=== PATIENT | male | born 1930 | race Caucasian/White ===

== ENCOUNTER 2018-08-30 16:31 | Emergency (ER) | payer MEDICARE, MEDICAID ==
[~2018-08-30] VITALS: Ht 165.1 cm; Wt 83.9 kg
[2018-08-30 16:45] VITALS: BP 150/92
[2018-08-30 17:06] LABS: HEMATOCRIT 47 % (40-54); HEMOGLOBIN 15.5 G/DL (13.3-17.7); MEAN CORPUSCULAR HEMOGLOBIN 31 PG (25-34); MEAN CORPUSCULAR VOLUME 93 FL (80-99); WHITE BLOOD COUNT 7.3 10^3/uL (4.3-11.0)
[2018-08-30 17:07] LABS: BASOPHILS # (AUTO) 0.1 10^3/uL (0.0-0.1); BASOPHILS % (AUTO) 1 % (0-10); EOSINOPHILS # (AUTO) 0.3 10^3/uL (0.0-0.3); EOSINOPHILS % (AUTO) 4 % (0-10); LYMPHOCYTES # (AUTO) 1.9 X 10^3 (1.0-4.0); LYMPHOCYTES % (AUTO) 26 % (12-44); MEAN CORPUSCULAR HGB CONC 33 G/DL (32-36); MEAN PLATELET VOLUME 10.2 FL (7.4-10.4); MONOCYTES # (AUTO) 0.7 X 10^3 (0.0-1.0); MONOCYTES % (AUTO) 9 % (0-12); NEUTROPHILS # (AUTO) 4.3 X 10^3 (1.8-7.8); NEUTROPHILS % (AUTO) 59 % (42-75); PLATELET COUNT 116 10^3/uL (130-400); RED CELL DISTRIBUTION WIDTH 16.7 % (10.0-14.5)
--- NOTE | 2018-08-30 17:14 | ED Neurological Problem ---
General Chief Complaint: Neuro-Stroke Like Symptoms Stated Complaint: POSS STROKE Source: patient, family History of Present Illness Date Seen by Provider: Aug 30, 2018 Time Seen by Provider: 16:55 Initial Comments 87-year-old male presents with left-sided weakness. Patient complains that his left arm feels "heavy" in his left leg was dragging. Family reports that symptoms started around 8:00 this morning. When ask him about some slight left- sided facial droop they report that is new. Patient does not seem to have any dysarthria or swallowing problems. Patient denies any chest pain, vision changes, nausea vomiting or other systemic complaints at this time Allergies and Home Medications Patient Home Medication List Home Medication List Reviewed: Yes Review of Systems Review of Systems Constitutional: No fever Eyes: No Symptoms Reported; Denies Blurred Vision Ears, Nose, Mouth, Throat: no symptoms reported Respiratory: No cough, No short of breath Cardiovascular: No chest pain, No edema Gastrointestinal: no symptoms reported; No abdominal pain, No nausea, No vomiting Genitourinary: no symptoms reported Musculoskeletal: see HPI Skin: no symptoms reported Psychiatric/Neurological: See HPI Past Dmktyfj-Tnolqm-Tehecs Hx Past Med/Social Hx: Reviewed Nursing Past Med/Soc Hx Patient Social History Recent Foreign Travel: No Contact w/Someone Who Travel: No Physical Exam Vital Signs Vital Signs - First Documented 08/30/18 16:45 Temp 96.7 Pulse 70 Resp 18 B/P (MAP) 150/92 Pulse Ox 98 O2 Delivery Room Air Capillary Refill : Height, Weight, BMI Height: '" Weight: lbs. oz. kg; BMI Method: General Appearance: WD/WN, no apparent distress HEENT: PERRL/EOMI Neck: full range of motion, supple Respiratory: chest non-tender, lungs clear, normal breath sounds Cardiovascular: normal peripheral pulses, regular rate, rhythm Gastrointestinal: non tender, soft Extremities: normal range of motion Neurologic/Psychiatric: oriented x 3, facial droop, motor weakness Crainal Nerves: normal hearing, normal speech, PERRL, facial droop Motor/Sensory: weak motor strength LUE, weak motor strength LLE Skin: normal color, warm/dry Stroke Onset of Symptoms Date of Onset of Symptoms: Aug 30, 2018 Time of Symptom Onset: 08:00 NIH Stroke Scale Assessment Select: Initial Level of Consciousness: 0=Alert (0), Level of Consciousness- Questions: 0=Answers both month/age (0), LOC Commands: 0=Performs both tasks (0), Gaze: Normal (0), Visual Gates: 0=No visual loss (0), Facial Movement (Facial Paresis): 1=Minor paralysis (1), Motor Function-Arms Right: 0=No drift (0), Motor Function-Arms Left: 1=Drift (1), Motor Function-Legs Right: 0=No drift (0), Motor Function-Legs Left: 1=Drift (1), Limb Ataxia: 0=Absent (0), Sensory: 0=Normal:no loss (0), Best Language: 0=No aphasia (0), Dysarthria: 0=Normal (0), Extinction & Inattention: 0=No abnormality (0), Total: 3 IV - TPa Received IV - TPa Procedure Performed?: No Progress/Results/Core Measures Results/Orders Lab Results Laboratory Tests Test 08/30/18 16:50 08/30/18 17:30 Range/Units White Blood Count 7.3 4.3-11.0 10^3/uL Red Blood Count 5.02 4.35-5.85 10^6/uL Hemoglobin 15.5 13.3-17.7 G/DL Hematocrit 47 40-54 % Mean Corpuscular Volume 93 80-99 FL Mean Corpuscular Hemoglobin 31 25-34 PG Mean Corpuscular Hemoglobin Concent 33 32-36 G/DL Red Cell Distribution Width 16.7 H 10.0-14.5 % Platelet Count 116 L 130-400 10^3/uL Mean Platelet Volume 10.2 7.4-10.4 FL Neutrophils (%) (Auto) 59 42-75 % Lymphocytes (%) (Auto) 26 12-44 % Monocytes (%) (Auto) 9 0-12 % Eosinophils (%) (Auto) 4 0-10 % Basophils (%) (Auto) 1 0-10 % Neutrophils # (Auto) 4.3 1.8-7.8 X 10^3 Lymphocytes # (Auto) 1.9 1.0-4.0 X 10^3 Monocytes # (Auto) 0.7 0.0-1.0 X 10^3 Eosinophils # (Auto) 0.3 0.0-0.3 10^3/uL Basophils # (Auto) 0.1 0.0-0.1 10^3/uL Prothrombin Time 13.8 12.2-14.7 SEC INR Comment 1.0 0.8-1.4 Sodium Level 138 135-145 MMOL/L Potassium Level 4.0 3.6-5.0 MMOL/L Chloride Level 99 98-107 MMOL/L Carbon Dioxide Level 23 21-32 MMOL/L Anion Gap 16 H 5-14 MMOL/L Blood Urea Nitrogen 19 H 7-18 MG/DL Creatinine 1.30 0.60-1.30 MG/DL Estimat Glomerular Filtration Rate 52 BUN/Creatinine Ratio 15 Glucose Level 112 H 70-105 MG/DL Calcium Level 8.8 8.5-10.1 MG/DL Corrected Calcium 8.8 8.5-10.1 MG/DL Magnesium Level 2.2 1.8-2.4 MG/DL Total Bilirubin 0.5 0.1-1.0 MG/DL Aspartate Amino Transf (AST/SGOT) 28 5-34 U/L Alanine Aminotransferase (ALT/SGPT) 12 0-55 U/L Alkaline Phosphatase 340 H 40-136 U/L Total Protein 7.1 6.4-8.2 GM/DL Albumin 4.0 3.2-4.5 GM/DL My Orders Orders - MILES,EDDY L DO Ct Head Wo (08/30/18 16:54) Cbc With Automated Diff (08/30/18 16:54) Comprehensive Metabolic Panel (08/30/18 16:54) Magnesium (08/30/18 16:54) Protime With Inr (08/30/18 16:54) Ua Culture If Indicated (08/30/18 16:54) Ed Iv/Invasive Line Start (08/30/18 16:54) Ekg Tracing (08/30/18 16:54) Monitor-Rhythm Ecg Trace Only (08/30/18 16:54) Troponin I (08/30/18 17:22) Vital Signs/I&O 08/30/18 08/30/18 16:45 16:45 Temp 96.7 Pulse 70 70 Resp 18 18 B/P (MAP) 150/92 150/92 (111) Pulse Ox 98 O2 Delivery Room Air Progress Progress Note : Progress Note Reviewed presentation labs and CT with patient. I discussed with him that his symptoms are consistent with a left-sided stroke and was mild. Patient was offered transfer to [facility] for MRI and further stroke workup. At this time patient declined and will follow-up with his primary care provider Dr. Millan. I recommended he be started on aspirin daily. Patient and family voiced understanding of risks. They will be discharged home in stable condition. 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 Referrals: NO,LOCAL PHYSICIAN (PCP) Primary Care Physician Patient Instructions: Left-Side Stroke, Transient Ischemic Attack (DC) EDDY MILES DO Aug 30, 2018 17:14
--- NOTE | 2018-08-30 17:16 | Diagnostic Imaging Report ---
PROCEDURE: CT head without contrast. TECHNIQUE: Multiple contiguous axial images were obtained through the brain without the use of intravenous contrast. Auto Exposure Controls were utilized during the CT exam to meet ALARA standards for radiation dose reduction. INDICATION: Left-sided weakness. COMPARISON: No prior studies are available for comparison. FINDINGS: Ventricles and sulci are prominent consistent with the patient's age. There is periventricular hypodensity noted consistent with senescent change. No sulcal effacement or midline shift is detected. No acute intra-axial or extra-axial hemorrhage is detected. Cisterns are patent. Visualized paranasal sinuses are clear. IMPRESSION: Senescent changes. No acute intracranial process is detected. Dictated by: Dictated on workstation # [id number]
[2018-08-30 17:17] LABS: PROTHROMBIN TIME PATIENT 13.8 SEC (12.2-14.7)
[2018-08-30 17:22] LABS: BILIRUBIN,TOTAL 0.5 MG/DL (0.1-1.0); CALCIUM 8.8 MG/DL (8.5-10.1); CREATININE SERUM 1.3 MG/DL (0.60-1.30); MAGNESIUM 2.2 MG/DL (1.8-2.4); TOTAL PROTEIN 7.1 GM/DL (6.4-8.2)
[2018-08-30 17:45] LABS: BILIRUBIN,URINE NEGATIVE (NEGATIVE); CLARITY,URINE CLEAR; COLOR,URINE YELLOW; GLUCOSE, URINE (UA) NEGATIVE (NEGATIVE); KETONES,URINE NEGATIVE (NEGATIVE); LEUKOCYTE ESTERASE ,URINE NEGATIVE (NEGATIVE); NITRITE,URINE NEGATIVE (NEGATIVE); PH,URINE 5.5 (5-9); PROTEIN,URINE NEGATIVE (NEGATIVE); UROBILINOGEN,URINE 0.2 MG/DL (NORMAL)
[2018-08-30 17:46] LABS: BACTERIA,URINE NEGATIVE /HPF; RBC,URINE RARE /HPF; WBC,URINE RARE /HPF
[2018-08-30 18:12] VITALS: BP 116/63
--- OUTSIDE RECORDS SUMMARY | 2018-08-30 19:02 | XMS REPORT | Continuity of Care Document ---
Demographics x Preferred Language Unknown Marital Status Unknown Sabianist Affiliation Unknown Race Unknown Ethnic Group Unknown Author Organization Unknown Address Unknown Allergies There is no data. Medications There is no data. Problems There is no data. Procedures There is no data. Results Test Result Range LIPID PANEL - 06/07/18 11:00 CHOLESTEROL, TOTAL 144 mg/dL <200 HDL CHOLESTEROL 40 mg/dL >40 TRIGLYCERIDES 182 mg/dL <150 LDL-CHOLESTEROL 76 mg/dL (calc) NRG CHOL/HDLC RATIO 3.6 (calc) <5.0 NON HDL CHOLESTEROL 104 mg/dL (calc) <130 CMP - 06/07/18 11:00 GLUCOSE 80 mg/dL 65-99 UREA NITROGEN (BUN) 16 mg/dL 7-25 CREATININE 1.12 mg/dL 0.70-1.11 eGFR NON-AFR. EMIRATI 60 mL/min/1.73m2 > OR=60 eGFR 69 mL/min/1.73m2 > OR=60 BUN/CREATININE RATIO 14 (calc) 6-22 SODIUM 140 mmol/L 135-146 POTASSIUM 5.0 mmol/L 3.5-5.3 CHLORIDE 105 mmol/L 98-110 CARBON DIOXIDE 23 mmol/L 20-32 CALCIUM 9.4 mg/dL 8.6-10.3 PROTEIN, TOTAL 7.5 g/dL 6.1-8.1 ALBUMIN 4.4 g/dL 3.6-5.1 GLOBULIN 3.1 g/dL (calc) 1.9-3.7 ALBUMIN/GLOBULIN RATIO 1.4 (calc) 1.0-2.5 BILIRUBIN, TOTAL 0.7 mg/dL 0.2-1.2 ALKALINE PHOSPHATASE 180 U/L 40-115 AST 19 U/L 10-35 ALT 11 U/L 9-46 Encounters ACCT No. Visit Date/Time Discharge Status Pt. Type Provider Facility Loc./Unit Complaint [id number] 06/07/2018 10:45:00 06/07/2018 23:59:59 [facility] Outpatient [facility] [id number] 06/07/2018 10:45:00 Document Registration
== END 2018-08-30 18:12 | disposition home or self-care (01) ==
LOC: ER FS 16:33
DX: I63.50 Cerebral infarction due to unspecified occlusion or stenosis of unspecified cerebral artery (principal)
CPT/HCPCS: 36415; 70450; 80053; 81000; 83735; 84484; 85025; 85610; 93005; 93041

== ENCOUNTER 2018-10-15 11:47 | Emergency (ER) | payer MEDICARE, MEDICAID ==
[~2018-10-15] VITALS: Ht 165.1 cm; Wt 83.9 kg
[2018-10-15] MEDS ORDERED: KETOROLAC 30 MG/ML VIAL IVP ONE (12:15)
[2018-10-15 12:42] LABS: BASOPHILS % (AUTO) 1 % (0-10); EOSINOPHILS % (AUTO) 3 % (0-10); HEMATOCRIT 46 % (40-54); HEMOGLOBIN 15.5 G/DL (13.3-17.7); LYMPHOCYTES # (AUTO) 1.3 X 10^3 (1.0-4.0); LYMPHOCYTES % (AUTO) 19 % (12-44); MEAN CORPUSCULAR HEMOGLOBIN 30 PG (25-34); MEAN CORPUSCULAR HGB CONC 34 G/DL (32-36); MEAN CORPUSCULAR VOLUME 90 FL (80-99); MEAN PLATELET VOLUME 10.3 FL (7.4-10.4); MONOCYTES % (AUTO) 9 % (0-12); NEUTROPHILS # (AUTO) 4.6 X 10^3 (1.8-7.8); NEUTROPHILS % (AUTO) 67 % (42-75); PLATELET COUNT 107 10^3/uL (130-400); RED CELL DISTRIBUTION WIDTH 16.1 % (10.0-14.5); WHITE BLOOD COUNT 6.9 10^3/uL (4.3-11.0)
[2018-10-15 12:43] LABS: BASOPHILS # (AUTO) 0.1 10^3/uL (0.0-0.1); EOSINOPHILS # (AUTO) 0.2 10^3/uL (0.0-0.3); MONOCYTES # (AUTO) 0.6 X 10^3 (0.0-1.0)
[2018-10-15 13:02] LABS: BILIRUBIN,TOTAL 0.6 MG/DL (0.1-1.0); CALCIUM 9.4 MG/DL (8.5-10.1); CREATININE SERUM 1.28 MG/DL (0.60-1.30); MAGNESIUM 2.2 MG/DL (1.6-2.4); POTASSIUM 4.5 MMOL/L (3.6-5.0)
[2018-10-15 13:03] LABS: TOTAL PROTEIN 7.4 GM/DL (6.4-8.2)
[2018-10-15] MEDS ORDERED: ORPHENADRINE 60 MG/2 ML (NORFLEX) AMP IV ONE (13:15)
[2018-10-15] MEDS ORDERED: fentaNYL INJECTION 100 MCG/2 ML AMP IVP ONE (13:15)
--- NOTE | 2018-10-15 14:15 | Diagnostic Imaging Report ---
PROCEDURE: CT thoracic and lumbar spine without contrast. TECHNIQUE: Multiple contiguous axial images were obtained through the thoracic and lumbar spine without the use of intravenous contrast. Sagittal and coronal reformations were then performed. INDICATION: Mid lower back pain particularly on the left side for three weeks. COMPARISON: None. DISCUSSION: Advanced degenerative disease is noted within the thoracolumbar spine particularly from T6 through L5. Accentuated thoracic kyphosis centered at T10. There are multiple compression deformities noted. Mild deformities are present at T6, T7, T8, T10, T11. Moderate compression deformities are present at T9 and T12. No compression fracture within the lumbar spine. Fractures are age-indeterminate. Recommend MRI or bone scan to evaluate for acuity. Several of the vertebral bodies have a somewhat sclerotic and heterogenous appearance which could be due to long-standing degenerative disease and compression fractures, though underlying infiltrative process such as metastatic disease is not excluded. This could also be further evaluated with MRI with contrast enhancement. Grade 1 anterolisthesis of L4 on L5. Advanced facet arthropathy is noted diffusely throughout the lumbar spine. There is a bilateral pars defect at L4. Within the ribs, particularly on the left, there are multiple areas of destruction. The T6, T7, T9 ribs are particularly affected. Given these findings, suspect widespread metastatic disease. The adjacent soft tissues are unremarkable. Metastatic disease is also noted within the visualized pelvis. IMPRESSION: 1. 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 2. Multiple compression deformities throughout the thoracic spine, age indeterminate. These would be considered pathologic in nature. Dictated by: Dictated on workstation # [id number]
[2018-10-15] MEDS ORDERED: NS IV 1000 ML 1,000 ML IV ONE (14:56)
[2018-10-15] MEDS ORDERED: IOHEXOL 350 MG/ML 100 ML (OMNIPAQUE 350) VIAL IV ONE (15:00)
[2018-10-15] MEDS ORDERED: NS 100 ML (IVPB) BAG IV ONE (15:00)
[2018-10-15] MEDS ORDERED: HOLD METFORMIN - RECEIVED CONTRAST 20 ML VIAL IV SCH (15:00)
[2018-10-15] MEDS ORDERED: CATHETER FLUSH 10 ML SYR IV PRN (15:00)
--- NOTE | 2018-10-15 15:06 | Diagnostic Imaging Report ---
PROCEDURE: CT pelvis without contrast. TECHNIQUE: Multiple contiguous axial images were obtained through the pelvis without the use of intravenous contrast. Sagittal and coronal reformations were performed. Auto Exposure Controls were utilized during the CT exam to meet ALARA standards for radiation dose reduction. INDICATION: Mid and lower back pain. COMPARISON: None available. Findings: There is an ill-defined sclerotic lesion of the left ischium on axial image 42 with wide zone of transition. This measures roughly 2.8 x 2.2 cm in axial dimension. There is also a subtle sclerotic focus in the left superior pubic ramus on axial image 37 measuring 8mm in size. There are multiple additional ill-defined sclerotic lesions involving the left iliac bone. There are also multiple ill-defined sclerotic lesions of the right iliac bone and just above the level of the right ischium. There is ill-defined sclerosis in the region of the right and left lesser trochanters. There is a small sclerotic focus in the left sacrum on axial image 25. There are additional areas of ill-defined sclerosis present within the sacrum and multiple locations. There are ill-defined sclerotic lesions of the L5 and L4 vertebral bodies and likely at L3 although the L3 vertebral body is only partially imaged. There are bilateral L4 pars interarticularis defects with grade 1 anterolisthesis of L4 on L5. There is disc height loss at L4-L5. There are facet degenerative changes of the lower lumbar spine. There is chondrocalcinosis. There is a chronic healed prior fracture deformity of the right inferior pubic ramus and also the right superior pubic ramus. There is no identified acute appearing fracture. There are atherosclerotic calcifications. There is a fat-containing umbilical hernia. There is mild irregularity of the contour of the prostate gland. There appears to be asymmetric indentation on the left posterior aspect of the urinary bladder. The urinary bladder wall thickening asymmetrically located would be difficult to exclude. There is no identified abnormally enlarged lymph node in the abdomen meeting CT size criteria for adenopathy. Impression: 1. 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 2. No identified acute fracture. 3. Irregularity of the contour of the prostate with potential asymmetric indentation of the left posterior urinary bladder wall and/or asymmetric urinary bladder wall thickening. Especially given the sclerotic bone lesions, prostate cancer or urinary bladder malignancy cannot be excluded. Further workup is recommended if there is no known primary malignancy. Dictated by: Dictated on workstation # [id number]
--- NOTE | 2018-10-15 15:59 | Diagnostic Imaging Report ---
PROCEDURE: CT chest, abdomen, and pelvis with contrast. TECHNIQUE: Multiple contiguous axial images were obtained through the chest, abdomen, and pelvis after the administration of intravenous contrast. Auto Exposure Controls were utilized during the CT exam to meet ALARA standards for radiation dose reduction. DATE: October 15, 2018. COMPARISON: Same day CT pelvis, October 15, 2018. Same day CT thoracic and lumbar spine, October 15, 2018. INDICATION: 87-year-old male, mid and lower back pain. Known sclerotic bone lesions concerning for metastatic disease. FINDINGS: There is a right pleural calcification. There is a trace right pleural effusion and/or pleural thickening. There is very mild left pleural thickening and/or trace left pleural effusion. There is no left pleural calcification. There is no identified pulmonary nodule or lung mass. There is no additional identified focal airspace consolidation. There is no pneumothorax. There is no pleural effusion. The central airways are patent. There is no identified pulmonary embolus. The main pulmonary artery is normal in caliber. The heart is mildly enlarged. There is no identified pericardial effusion. There are atherosclerotic calcifications. There is no identified abnormally enlarged mediastinal, hilar or axillary lymph node which meets CT size criteria for adenopathy. The liver is normal in size and contour. There is an enhancing focus in the right lobe of the liver on axial image 96, measuring 9 mm in size. There does appear to be a vessel extending to the lesion. This is not specific. Recommend comparison with prior imaging, if available, to assess for stability. The main, right and left portal veins are patent. The gallbladder is unremarkable. There is no intrahepatic or extrahepatic bile duct dilation. The main pancreatic duct is not abnormally dilated. Unremarkable appearance of the pancreatic parenchyma. The spleen is not enlarged. There is a low-attenuation nonspecific lesion in the spleen on axial image 120, measuring 9 mm in size. The adrenal glands are unremarkable. There is an exophytic low-attenuation left renal lesion on axial image 135, measuring 1.8 cm in size, with internal attenuation diagnostic for a benign left renal cyst. The urinary collecting systems are not distended. There is no identified renal or ureteral stone. There is an irregular and nodular appearance of the prostate with asymmetric indentation of the left posterior urinary bladder wall and/or urinary bladder wall thickening asymmetrically located at this location. Especially given the known sclerotic bone lesions this does raise concern for possibility of prostate or urinary bladder malignancy. Further workup for definitive diagnosis is recommended. The intestinal tract is not distended. There is a sizable fat-containing umbilical hernia without complication. There is a small hiatal hernia. There is no free intraperitoneal air. There is no drainable fluid collection. There is no free pelvic fluid. There is no identified abnormally enlarged lymph node in the abdomen or pelvis which meet CT size criteria for adenopathy. There is soft tissue attenuation at the level of the right intertrochanteric femur likely relating to a bone metastasis. There is ill-defined sclerosis in the region of the right and left lesser trochanters likely relating to bone metastasis. There are numerous ill-defined sclerotic lesions of the pelvis, sacrum, lumbar spine, thoracic spine, ribs bilaterally, sternum, right scapula and left proximal humeral metaphysis. There is grade 1 anterolisthesis of L4 on L5 relating to bilateral pars interarticularis defects of L4. There is a bone metastasis involving the left pedicle of T10. IMPRESSION: CT chest, abdomen and pelvis: 1. 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 2. Irregular abnormal nodularity of the prostate gland which is nonspecific although does raise concern for potential prostate malignancy given the presence of a sclerotic bone metastasis. 3. The irregularity along the left posterior urinary bladder wall could relate to indentation by the prostate or asymmetric wall thickening of the urinary bladder. Further evaluation for definitive diagnosis of potential urinary bladder and prostate malignancy is recommended. 4. Nonspecific enhancing lesion of the liver. This potentially may be benign in etiology although malignant etiology is difficult to exclude. Recommend comparison with prior imaging, if available. 5. Right pleural calcification most likely relating to prior hemothorax or empyema with trace right pleural effusion and/or pleural thickening and mild left pleural thickening and/or trace left pleural effusion. Dictated by: Dictated on workstation # [id number]
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
[2018-10-15] MEDS ORDERED: oxyCODONE/APAP 5/325MG (PERCOCET 5) TABLET PO ONE (17:00)
[2018-10-15 17:02] LABS: BACTERIA,URINE NEGATIVE /HPF; BILIRUBIN,URINE NEGATIVE (NEGATIVE); CLARITY,URINE CLEAR; COLOR,URINE YELLOW; GLUCOSE, URINE (UA) NEGATIVE (NEGATIVE); KETONES,URINE TRACE (NEGATIVE); LEUKOCYTE ESTERASE ,URINE NEGATIVE (NEGATIVE); NITRITE,URINE NEGATIVE (NEGATIVE); PH,URINE 5.5 (5-9); PROTEIN,URINE NEGATIVE (NEGATIVE); RBC,URINE 0-2 /HPF; UROBILINOGEN,URINE 0.2 MG/DL (NORMAL); WBC,URINE 0-2 /HPF
[2018-10-15 17:03] LABS: HYALINE CASTS, URINE 0-2 /LPF
[2018-10-15] MEDS ORDERED: OXYC-199 PO (17:17)
[2018-10-15] MEDS ORDERED: DOCU-143 PO (17:17)
[2018-10-15 17:35] VITALS: BP 136/71
== END 2018-10-15 17:35 | disposition home or self-care (01) ==
LOC: EDUNIT# 11:47 → ER FS 11:49
DX: M84.48XA Pathological fracture, other site, initial encounter for fracture (principal); C79.49 Secondary malignant neoplasm of other parts of nervous system; C79.51 Secondary malignant neoplasm of bone; C80.1 Malignant (primary) neoplasm, unspecified; I50.9 Heart failure, unspecified; Z86.73 Personal history of transient ischemic attack (TIA), and cerebral infarction without residual deficits; Z98.890 Other specified postprocedural states
CPT/HCPCS: 36415; 71260; 72128; 72131; 72192; 74177; 80053; 81000; 83735; 84153; 85025; 96374; 96375

== ENCOUNTER → 2018-10-31 | Outpatient (CLI) | payer MEDICARE, MEDICAID ==
[~2018-10-31] MED LIST: DOCU-143 PO; OXYC-199 PO
--- NOTE | 2018-10-31 16:05 | Diagnostic Imaging Report ---
INDICATION: Prostate cancer. TECHNIQUE: The patient was administered 25.4 mCi of technetium 99m MDP intravenously and whole body imaging was performed after a 3 hour delay. COMPARISON: No prior bone scans are available for comparison. FINDINGS: There is uptake of activity by the axial and appendicular skeleton. There is uptake by the kidneys with excretion into the urinary bladder. There are innumerable foci of abnormal uptake throughout the thoracic and lumbar spine as well as bilateral ribs. There is uptake in the bony pelvis as well as bilateral femora. There also appears to be uptake in the region of the right shoulder. The findings are consistent with diffuse osseous metastatic disease. IMPRESSION: Diffuse osseous metastatic disease. Dictated by: Dictated on workstation # [id number]
== END ==
LOC: CARD 12:14
PROVIDERS: ATTEND Internal Medicine Hematology & Oncology
DX: C61 Malignant neoplasm of prostate (principal); C79.51 Secondary malignant neoplasm of bone; R97.20 Elevated prostate specific antigen [PSA]
CPT/HCPCS: 78306

== ENCOUNTER 2018-12-06 09:48 | Outpatient (RCR) | payer MEDICARE, MEDICAID ==
[~2018-12-06 09:48] MED LIST changes: +LEUPROLIDE ACETATE 7.5 MG ELIGARD SQ SCH
[2018-12-06 10:37] LABS: ALANINE AMINOTRANSFERASE 11 U/L (0-55); ALBUMIN 3.6 GM/DL (3.2-4.5); ALKALINE PHOSPHATASE 2491 U/L (40-136); BILIRUBIN,TOTAL 0.9 MG/DL (0.1-1.0); BUN/CREATININE RATIO 12; CALCIUM 8.6 MG/DL (8.5-10.1); CARBON DIOXIDE 22 MMOL/L (21-32); CHLORIDE 109 MMOL/L (98-107); GFR ESTIMATED > 60; GLUCOSE 92 MG/DL (70-105); POTASSIUM 4.1 MMOL/L (3.6-5.0); SODIUM 142 MMOL/L (135-145); TOTAL PROTEIN 6.4 GM/DL (6.4-8.2)
[2018-12-06 10:39] LABS: BASOPHILS % (AUTO) 1 % (0-10); EOSINOPHILS # (AUTO) 0.2 10^3/uL (0.0-0.3); EOSINOPHILS % (AUTO) 5 % (0-10); HEMATOCRIT 43 % (40-54); HEMOGLOBIN 13.9 G/DL (13.3-17.7); LYMPHOCYTES # (AUTO) 1.2 X 10^3 (1.0-4.0); LYMPHOCYTES % (AUTO) 24 % (12-44); MEAN CORPUSCULAR HEMOGLOBIN 29 PG (25-34); MEAN CORPUSCULAR HGB CONC 33 G/DL (32-36); MEAN CORPUSCULAR VOLUME 90 FL (80-99); MONOCYTES # (AUTO) 0.5 X 10^3 (0.0-1.0); MONOCYTES % (AUTO) 11 % (0-12); NEUTROPHILS # (AUTO) 2.9 X 10^3 (1.8-7.8); NEUTROPHILS % (AUTO) 59 % (42-75); PLATELET COUNT 133 10^3/uL (130-400); RED CELL DISTRIBUTION WIDTH 18.1 % (10.0-14.5); WHITE BLOOD COUNT 4.8 10^3/uL (4.3-11.0)
[2018-12-06] MEDS ORDERED: LEUPROLIDE 22.5 MG SYRINGE (ELIGARD) SQ SCH (10:45)
== END 2019-01-25 | disposition home or self-care (01) ==
LOC: ONC 09:48
PROVIDERS: ATTEND Internal Medicine Hematology & Oncology
DX: C79.51 Secondary malignant neoplasm of bone (principal); C61 Malignant neoplasm of prostate; Z86.73 Personal history of transient ischemic attack (TIA), and cerebral infarction without residual deficits; R97.20 Elevated prostate specific antigen [PSA]
CPT/HCPCS: 36415; 80053; 84153; 85025; 96402; 99214

== ENCOUNTER 2019-05-24 10:45 | Outpatient (RCR) | payer MEDICARE, MEDICAID ==
[2019-02-28 11:03] LABS: BASOPHILS % (AUTO) 1 % (0-10); EOSINOPHILS # (AUTO) 0.2 10^3/uL (0.0-0.3); EOSINOPHILS % (AUTO) 4 % (0-10); HEMATOCRIT 38 % (40-54); HEMOGLOBIN 12.4 G/DL (13.3-17.7); LYMPHOCYTES # (AUTO) 1.2 X 10^3 (1.0-4.0); LYMPHOCYTES % (AUTO) 23 % (12-44); MEAN CORPUSCULAR HEMOGLOBIN 30 PG (25-34); MEAN CORPUSCULAR HGB CONC 32 G/DL (32-36); MEAN CORPUSCULAR VOLUME 92 FL (80-99); MEAN PLATELET VOLUME 10.1 FL (7.4-10.4); MONOCYTES # (AUTO) 0.4 X 10^3 (0.0-1.0); MONOCYTES % (AUTO) 8 % (0-12); NEUTROPHILS # (AUTO) 3.3 X 10^3 (1.8-7.8); NEUTROPHILS % (AUTO) 64 % (42-75); PLATELET COUNT 123 10^3/uL (130-400); RED CELL DISTRIBUTION WIDTH 17.4 % (10.0-14.5); WHITE BLOOD COUNT 5.1 10^3/uL (4.3-11.0)
[2019-02-28 11:27] LABS: ALANINE AMINOTRANSFERASE 11 U/L (0-55); ALBUMIN 3.8 GM/DL (3.2-4.5); ALKALINE PHOSPHATASE 262 U/L (40-136); BILIRUBIN,TOTAL 0.5 MG/DL (0.1-1.0); BUN/CREATININE RATIO 16; CALCIUM 8.6 MG/DL (8.5-10.1); CARBON DIOXIDE 26 MMOL/L (21-32); CHLORIDE 109 MMOL/L (98-107); CREATININE SERUM 1.01 MG/DL (0.60-1.30); GFR ESTIMATED > 60; GLUCOSE 92 MG/DL (70-105); POTASSIUM 4.9 MMOL/L (3.6-5.0); SODIUM 141 MMOL/L (135-145); TOTAL PROTEIN 6.5 GM/DL (6.4-8.2)
[~2019-05-24 10:45] MED LIST changes: +LEUPROLIDE 22.5 MG SYRINGE (ELIGARD) SQ SCH; -LEUPROLIDE ACETATE 7.5 MG ELIGARD SQ SCH
[2019-05-24 11:03] LABS: BASOPHILS % (AUTO) 0 % (0-10); EOSINOPHILS # (AUTO) 0.3 10^3/uL (0.0-0.3); EOSINOPHILS % (AUTO) 5 % (0-10); HEMATOCRIT 39 % (40-54); HEMOGLOBIN 13.2 G/DL (13.3-17.7); LYMPHOCYTES # (AUTO) 1.5 X 10^3 (1.0-4.0); LYMPHOCYTES % (AUTO) 24 % (12-44); MEAN CORPUSCULAR HEMOGLOBIN 30 PG (25-34); MEAN CORPUSCULAR HGB CONC 34 G/DL (32-36); MEAN CORPUSCULAR VOLUME 89 FL (80-99); MEAN PLATELET VOLUME 9.9 FL (7.4-10.4); MONOCYTES # (AUTO) 0.6 X 10^3 (0.0-1.0); MONOCYTES % (AUTO) 10 % (0-12); NEUTROPHILS # (AUTO) 3.7 X 10^3 (1.8-7.8); NEUTROPHILS % (AUTO) 61 % (42-75); PLATELET COUNT 101 10^3/uL (130-400); RED CELL DISTRIBUTION WIDTH 17.4 % (10.0-14.5); WHITE BLOOD COUNT 6.1 10^3/uL (4.3-11.0)
[2019-05-24 11:11] LABS: ALBUMIN 3.9 GM/DL (3.2-4.5)
[2019-05-24 11:12] LABS: CHLORIDE 106 MMOL/L (98-107); POTASSIUM 4.4 MMOL/L (3.6-5.0); SODIUM 139 MMOL/L (135-145)
[2019-05-24 11:13] LABS: CALCIUM 8.8 MG/DL (8.5-10.1)
[2019-05-24 11:14] LABS: GLUCOSE 95 MG/DL (70-105); TOTAL PROTEIN 6.6 GM/DL (6.4-8.2)
[2019-05-24 11:15] LABS: CARBON DIOXIDE 25 MMOL/L (21-32)
[2019-05-24 11:16] LABS: BILIRUBIN,TOTAL 0.7 MG/DL (0.1-1.0)
[2019-05-24 11:17] LABS: ALKALINE PHOSPHATASE 311 U/L (40-136)
[2019-05-24 11:18] LABS: CREATININE SERUM 0.97 MG/DL (0.60-1.30); GFR ESTIMATED > 60
[2019-05-24 11:19] LABS: BUN/CREATININE RATIO 20
[2019-05-24 11:20] LABS: ALANINE AMINOTRANSFERASE 12 U/L (0-55)
== END 2019-05-29 | disposition home or self-care (01) ==
LOC: ONC 10:45
PROVIDERS: ATTEND Internal Medicine Hematology & Oncology
DX: C79.51 Secondary malignant neoplasm of bone (principal); C61 Malignant neoplasm of prostate; Z86.73 Personal history of transient ischemic attack (TIA), and cerebral infarction without residual deficits; R97.20 Elevated prostate specific antigen [PSA]
CPT/HCPCS: 80053; 84153; 85025; 96402

== ENCOUNTER → 2019-07-25 | Outpatient (CLI) | payer MEDICARE, MEDICAID ==
[~2019-07-25] MED LIST changes: +HOLD METFORMIN - RECEIVED CONTRAST 20 ML VIAL IV SCH; +IOHEXOL 350 MG/ML 100 ML (OMNIPAQUE 350) VIAL IV ONE; -LEUPROLIDE 22.5 MG SYRINGE (ELIGARD) SQ SCH; +NS 100 ML (IVPB) BAG IV ONE
[2019-07-25] MEDS: CATHETER FLUSH 10 ML SYR IV PRN ×3 (11:45→12:23)
[2019-07-25 12:09] LABS: ALANINE AMINOTRANSFERASE 10 U/L (0-55); ALBUMIN 3.8 GM/DL (3.2-4.5); ALKALINE PHOSPHATASE 794 U/L (40-136); BILIRUBIN,TOTAL 0.5 MG/DL (0.1-1.0); BUN/CREATININE RATIO 20; CALCIUM 9.2 MG/DL (8.5-10.1); CARBON DIOXIDE 27 MMOL/L (21-32); CHLORIDE 103 MMOL/L (98-107); CREATININE SERUM 0.98 MG/DL (0.60-1.30); GFR ESTIMATED > 60; GLUCOSE 92 MG/DL (70-105); POTASSIUM 4.5 MMOL/L (3.6-5.0); SODIUM 138 MMOL/L (135-145); TOTAL PROTEIN 7.1 GM/DL (6.4-8.2)
--- NOTE | 2019-07-25 15:34 | Diagnostic Imaging Report ---
EXAMINATION: CT Chest with intravenous contrast, CT Abdomen and Pelvis without and with intravenous contrast. TECHNIQUE: Pre and post intravenous contrast axial imaging of the abdomen and pelvis and post contrast axial imaging of the chest were performed. All CT scans use one or more of the following dose optimizing techniques: automated exposure control, MA and/or KvP adjustment based on a patient size and exam type, or iterative reconstruction. HISTORY: Prostate cancer, elevated PSA. COMPARISON: 10/15/2018. FINDINGS: There is no edema or pneumonia. Calcified right pleural plaque is again seen. There is a tiny right pleural effusion. No pneumothorax. There is a stable 4 mm nodule in the right lower lobe (series 5, image 78). Left ventricle is mildly dilated. There are mild coronary artery calcifications. No pericardial effusion. Aorta is normal in caliber. There is no axillary or supraclavicular lymphadenopathy. There is no mediastinal lymphadenopathy. The liver is normal without focal lesion. There is no biliary ductal dilation. Gallbladder is normal. Pancreas is normal. There is a stable small cystic lesion in the pancreas. Adrenal glands are normal. Left renal cyst is unchanged. No suspicious renal lesions are seen. There is no hydronephrosis. The previously seen mass at the base of the bladder is not identified on today's study which may be due to differences in phase of contrast or internal resection. There is a fat-containing ventral hernia. Visualized bowel is normal in caliber without obstruction or inflammation. No free fluid or air. No abdominal or pelvic lymphadenopathy. Aorta is normal in caliber without aneurysm. There has been marked increase in sclerotic lesions throughout the visualized skeleton, now nearly confluent. There is a stable mild T9 compression fracture. No new pathologic fractures are seen. IMPRESSION: 1. Marked progression of osseous metastatic disease which is now nearly confluent throughout the visualized skeleton. Dictated by: Dictated on workstation # [id number]
--- NOTE | 2019-07-25 17:40 | Diagnostic Imaging Report ---
RADIOPHARMACEUTICAL: 26.5 mCi Tc-99m -MDP IV INDICATION: Elevated PSA/prostate cancer. COMPARISON: October 31, 2018. TECHNIQUE: Anterior and posterior whole body images. FINDINGS: Extensive abnormal activity is again noted diffusely throughout the osseous structures. This includes throughout the spine, innumerable bilateral ribs, bilateral shoulders, bilateral humeri, pelvis, and bilateral femurs. Overall appearance has slightly worsened since the prior examination. Additionally, extensive activity is noted within the lower thoracic spine which spans across these vertebral bodies. The urinary bladder is visualized. IMPRESSION: 1. Findings concerning for interval progression of extensive osseous metastatic disease. 2. Radiotracer activity extending across multiple vertebral bodies within the lower thoracic spine has worsened since the prior examination. It is favored that this simply relates to worsening osseous metastatic disease associated with the entire vertebral body. Healing compression fracture would be an additional consideration. However, CT of this region performed on the same date demonstrated stable vertebral body height loss without new compression deformity. Dictated by: Dictated on workstation # [id number]
== END ==
LOC: CARD 11:23
PROVIDERS: ATTEND Nurse Practitioner Adult Health
DX: C61 Malignant neoplasm of prostate (principal); C79.51 Secondary malignant neoplasm of bone; I51.9 Heart disease, unspecified
CPT/HCPCS: 36415; 71260; 74178; 78306; 80053

== ENCOUNTER 2019-09-11 10:24 | Outpatient (RCR) | payer MEDICARE, MEDICAID ==
[2019-08-08 13:07] LABS: BASOPHILS % (AUTO) 0 % (0-10); EOSINOPHILS # (AUTO) 0.2 10^3/uL (0.0-0.3); EOSINOPHILS % (AUTO) 3 % (0-10); HEMATOCRIT 36 % (40-54); HEMOGLOBIN 12.1 G/DL (13.3-17.7); LYMPHOCYTES # (AUTO) 1.1 X 10^3 (1.0-4.0); LYMPHOCYTES % (AUTO) 18 % (12-44); MEAN CORPUSCULAR HEMOGLOBIN 29 PG (25-34); MEAN CORPUSCULAR HGB CONC 33 G/DL (32-36); MEAN CORPUSCULAR VOLUME 86 FL (80-99); MEAN PLATELET VOLUME 9.5 FL (7.4-10.4); MONOCYTES # (AUTO) 0.6 X 10^3 (0.0-1.0); MONOCYTES % (AUTO) 10 % (0-12); NEUTROPHILS # (AUTO) 4.3 X 10^3 (1.8-7.8); NEUTROPHILS % (AUTO) 69 % (42-75); PLATELET COUNT 165 10^3/uL (130-400); RED CELL DISTRIBUTION WIDTH 16.9 % (10.0-14.5); WHITE BLOOD COUNT 6.3 10^3/uL (4.3-11.0)
[2019-08-08 13:26] LABS: ALANINE AMINOTRANSFERASE 7 U/L (0-55); ALBUMIN 3.8 GM/DL (3.2-4.5); ALKALINE PHOSPHATASE 1050 U/L (40-136); BILIRUBIN,TOTAL 0.5 MG/DL (0.1-1.0); BUN/CREATININE RATIO 18; CALCIUM 9.3 MG/DL (8.5-10.1); CARBON DIOXIDE 24 MMOL/L (21-32); CHLORIDE 105 MMOL/L (98-107); CREATININE SERUM 0.98 MG/DL (0.60-1.30); GFR ESTIMATED > 60; GLUCOSE 102 MG/DL (70-105); POTASSIUM 3.9 MMOL/L (3.6-5.0); SODIUM 138 MMOL/L (135-145); TOTAL PROTEIN 7.1 GM/DL (6.4-8.2)
[~2019-09-11 10:24] MED LIST changes: -HOLD METFORMIN - RECEIVED CONTRAST 20 ML VIAL IV SCH; -IOHEXOL 350 MG/ML 100 ML (OMNIPAQUE 350) VIAL IV ONE; +LEUPROLIDE 22.5 MG SYRINGE (ELIGARD) SQ SCH; -NS 100 ML (IVPB) BAG IV ONE
[2019-09-11 10:38] LABS: BASOPHILS % (AUTO) 1 % (0-10); EOSINOPHILS # (AUTO) 0.2 10^3/uL (0.0-0.3); EOSINOPHILS % (AUTO) 4 % (0-10); HEMATOCRIT 35 % (40-54); HEMOGLOBIN 11.4 G/DL (13.3-17.7); LYMPHOCYTES # (AUTO) 1.2 X 10^3 (1.0-4.0); LYMPHOCYTES % (AUTO) 19 % (12-44); MEAN CORPUSCULAR HEMOGLOBIN 28 PG (25-34); MEAN CORPUSCULAR HGB CONC 33 G/DL (32-36); MEAN CORPUSCULAR VOLUME 85 FL (80-99); MEAN PLATELET VOLUME 9.5 FL (7.4-10.4); MONOCYTES # (AUTO) 0.5 X 10^3 (0.0-1.0); MONOCYTES % (AUTO) 9 % (0-12); NEUTROPHILS # (AUTO) 4.3 X 10^3 (1.8-7.8); NEUTROPHILS % (AUTO) 68 % (42-75); PLATELET COUNT 146 10^3/uL (130-400); RED CELL DISTRIBUTION WIDTH 18.6 % (10.0-14.5); WHITE BLOOD COUNT 6.4 10^3/uL (4.3-11.0)
[2019-09-11 11:03] LABS: ALANINE AMINOTRANSFERASE 10 U/L (0-55); ALBUMIN 3.6 GM/DL (3.2-4.5); ALKALINE PHOSPHATASE 745 U/L (40-136); BILIRUBIN,TOTAL 0.8 MG/DL (0.1-1.0); BUN/CREATININE RATIO 19; CALCIUM 9.7 MG/DL (8.5-10.1); CARBON DIOXIDE 24 MMOL/L (21-32); CHLORIDE 103 MMOL/L (98-107); CREATININE SERUM 1.05 MG/DL (0.60-1.30); GFR ESTIMATED > 60; GLUCOSE 107 MG/DL (70-105); POTASSIUM 4.4 MMOL/L (3.6-5.0); SODIUM 137 MMOL/L (135-145); TOTAL PROTEIN 6.7 GM/DL (6.4-8.2)
== END 2019-10-03 | disposition home or self-care (01) ==
LOC: ONC 10:24
PROVIDERS: ATTEND Internal Medicine Hematology & Oncology
DX: C79.51 Secondary malignant neoplasm of bone (principal); C61 Malignant neoplasm of prostate; Z86.73 Personal history of transient ischemic attack (TIA), and cerebral infarction without residual deficits; R97.20 Elevated prostate specific antigen [PSA]
CPT/HCPCS: 80053; 82306; 84153; 85025; 96402; 99213

== ENCOUNTER 2019-10-06 18:54 | Emergency (ER) | payer MEDICARE, MEDICAID ==
[~2019-10-06] VITALS: Ht 177.8 cm; Wt 75.0 kg
[~2019-10-06 18:54] MED LIST changes: -LEUPROLIDE 22.5 MG SYRINGE (ELIGARD) SQ SCH
[2019-10-06 19:06] LABS: HEMOGLOBIN 9.7 G/DL (13.3-17.7); MEAN CORPUSCULAR HEMOGLOBIN 28 PG (25-34); WHITE BLOOD COUNT 7.8 10^3/uL (4.3-11.0)
[2019-10-06 19:07] LABS: BASOPHILS # (AUTO) 0.1 10^3/uL (0.0-0.1); BASOPHILS % (AUTO) 1 % (0-10); EOSINOPHILS # (AUTO) 0.1 10^3/uL (0.0-0.3); EOSINOPHILS % (AUTO) 1 % (0-10); HEMATOCRIT 29 % (40-54); LYMPHOCYTES % (AUTO) 13 % (12-44); MEAN CORPUSCULAR HGB CONC 34 G/DL (32-36); MEAN CORPUSCULAR VOLUME 83 FL (80-99); MEAN PLATELET VOLUME 8.7 FL (7.4-10.4); MONOCYTES # (AUTO) 0.6 X 10^3 (0.0-1.0); MONOCYTES % (AUTO) 8 % (0-12); NEUTROPHILS # (AUTO) 5.2 X 10^3 (1.8-7.8); NEUTROPHILS % (AUTO) 66 % (42-75); PLATELET COUNT 228 10^3/uL (130-400); RED CELL DISTRIBUTION WIDTH 20.1 % (10.0-14.5)
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
[2019-10-06] MEDS ORDERED: NS IV 500 ML 500 ML IV SCH ×2 (19:15→20:00)
[2019-10-06 19:24] LABS: BUN/CREATININE RATIO 48; CARBON DIOXIDE 23 MMOL/L (21-32); CHLORIDE 97 MMOL/L (98-107); CREATININE SERUM 0.89 MG/DL (0.60-1.30); GFR ESTIMATED > 60; POTASSIUM 3.6 MMOL/L (3.6-5.0); SODIUM 135 MMOL/L (135-145)
[2019-10-06 19:25] LABS: ALANINE AMINOTRANSFERASE 8 U/L (0-55); ALBUMIN 2.7 GM/DL (3.2-4.5); ALKALINE PHOSPHATASE 841 U/L (40-136); BILIRUBIN,TOTAL 1.3 MG/DL (0.1-1.0); CALCIUM 9.4 MG/DL (8.5-10.1); GLUCOSE 140 MG/DL (70-105); TOTAL PROTEIN 6.3 GM/DL (6.4-8.2)
[2019-10-06 19:34] LABS: CLARITY,URINE CLEAR; COLOR,URINE DARK YELLOW; GLUCOSE, URINE (UA) TRACE (NEGATIVE); KETONES,URINE TRACE (NEGATIVE); NITRITE,URINE NEGATIVE (NEGATIVE); PROTEIN,URINE NEGATIVE (NEGATIVE)
[2019-10-06 19:35] LABS: BACTERIA,URINE FEW /HPF; BILIRUBIN,URINE 2+ (NEGATIVE); LEUKOCYTE ESTERASE ,URINE NEGATIVE (NEGATIVE)
[2019-10-06 19:36] LABS: CALCIUM OXALATE CRYSTALS,UR RARE /LPF
[2019-10-06 19:37] LABS: URINE OTHER NA URATE CRYSTALS 1+ /HPF
--- NOTE | 2019-10-06 20:00 | NUR ---
DR FOY TALKED WITH DAUGHTER ERASMO AND TOLD HER WE WERE SENDING PT HOME PER EMS
[2019-10-06 20:20] VITALS: BP 104/46
--- NOTE | 2019-10-06 20:20 | NUR ---
EMS HERE TO TRANSPORT PT HOME, REPORT AND CARE GIVEN
== END 2019-10-06 20:20 | disposition home or self-care (01) ==
LOC: ER FS 18:54 → EDUNIT# 18:54 → ER FS 20:20
DX: E86.0 Dehydration (principal); C41.9 Malignant neoplasm of bone and articular cartilage, unspecified; Z66 Do not resuscitate; G89.29 Other chronic pain; Z79.891 Long term (current) use of opiate analgesic
CPT/HCPCS: 36415; 51702; 80053; 81000; 83605; 85025; 87088

== ENCOUNTER → 2019-10-09 | Outpatient (CLI) | payer MEDICARE, MEDICAID ==
[2019-10-09 10:12] LABS: BASOPHILS # (AUTO) 0.2 10^3/uL (0.0-0.1); BASOPHILS % (AUTO) 1 % (0-10); EOSINOPHILS # (AUTO) 0.1 10^3/uL (0.0-0.3); EOSINOPHILS % (AUTO) 1 % (0-10); HEMATOCRIT 33 % (40-54); LYMPHOCYTES # (AUTO) 1.8 X 10^3 (1.0-4.0); LYMPHOCYTES % (AUTO) 14 % (12-44); MEAN CORPUSCULAR HEMOGLOBIN 27 PG (25-34); MEAN CORPUSCULAR HGB CONC 33 G/DL (32-36); MEAN CORPUSCULAR VOLUME 83 FL (80-99); MEAN PLATELET VOLUME 8.8 FL (7.4-10.4); MONOCYTES # (AUTO) 0.6 X 10^3 (0.0-1.0); MONOCYTES % (AUTO) 5 % (0-12); NEUTROPHILS # (AUTO) 10.1 X 10^3 (1.8-7.8); NEUTROPHILS % (AUTO) 79 % (42-75); PLATELET COUNT 277 10^3/uL (130-400); WHITE BLOOD COUNT 12.7 10^3/uL (4.3-11.0)
[2019-10-09 10:30] LABS: ALANINE AMINOTRANSFERASE 13 U/L (0-55); ALBUMIN 3.1 GM/DL (3.2-4.5); ALKALINE PHOSPHATASE 970 U/L (40-136); BILIRUBIN,TOTAL 1.6 MG/DL (0.1-1.0); BUN/CREATININE RATIO 33; CALCIUM 9.9 MG/DL (8.5-10.1); CARBON DIOXIDE 21 MMOL/L (21-32); CHLORIDE 100 MMOL/L (98-107); CREATININE SERUM 0.88 MG/DL (0.60-1.30); GFR ESTIMATED > 60; GLUCOSE 135 MG/DL (70-105); POTASSIUM 3.7 MMOL/L (3.6-5.0); SODIUM 136 MMOL/L (135-145); TOTAL PROTEIN 7.2 GM/DL (6.4-8.2)
== END ==
LOC: ONC 10:16 → EDSTATUS 16:15
PROVIDERS: ATTEND Internal Medicine Hematology & Oncology
DX: C79.51 Secondary malignant neoplasm of bone (principal); C61 Malignant neoplasm of prostate; Z86.73 Personal history of transient ischemic attack (TIA), and cerebral infarction without residual deficits; R97.20 Elevated prostate specific antigen [PSA]
CPT/HCPCS: 80053; 84153; 85025; G0463; 99213